=== PATIENT | female | born 1950 | race Caucasian/White ===

== ENCOUNTER 2023-07-30 17:19 | Observation (INO) | payer MEDICARE, OTHER ==
[~2023-07-30] VITALS: Ht 162.6 cm; Wt 55.8 kg
[2023-07-30 17:24] VITALS: BP 155/70; PULSE 82; RESP 18; TEMP 97.5; O2SAT 98
[2023-07-30 17:53] LABS: BASOPHILS % (AUTO) 0.3 % (0.0-2.0); EOSINOPHILS # (AUTO) 0.1 K/uL (0-0.4); EOSINOPHILS % (AUTO) 0.4 % (0.0-4.0); HEMATOCRIT 45.7 % (36-48); HEMOGLOBIN 15.2 g/dL (12.0-16.0); LYMPHOCYTES # (AUTO) 1.8 K/uL (2.5-16.5); LYMPHOCYTES % (AUTO) 14.4 % (20.5-51.1); MEAN CORPUSCULAR HEMOGLOBIN 28 pg (27-31); MEAN CORPUSCULAR HGB CONC 33 g/dL (33-37); MEAN CORPUSCULAR VOLUME 83.6 fL (80-94); MONOCYTES # (AUTO) 0.9 K/uL (0.8-1.0); MONOCYTES % (AUTO) 6.8 % (1.7-9.3); NEUTROPHILS # (AUTO) 9.7 K/uL (1.8-7.7); NEUTROPHILS % (AUTO) 78.1 % (42.2-75.2); PLATELET COUNT (AUTO) 179 K/uL (140-450); RED BLOOD CELL COUNT(AUTO) 5.47 MIL/uL (4.20-5.40); RED CELL DISTRIBUTION WIDTH 15.1 % (11.6-13.7); WHITE BLOOD COUNT (AUTO) 12.5 K/uL (4.8-10.8)
[2023-07-30 18:04] LABS: ANION GAP 17.2 (8-16); CALCIUM 9.8 mg/dL (8.5-10.1); CARBON DIOXIDE 25.4 mmol/L (21-32); CHLORIDE 97 mmol/L (98-107); CREATININE 1.1 mg/dL (0.6-1.3); GLUCOSE 76 mg/dL (74-106); SODIUM SERUM 137 mmol/L (136-145); UREA NITROGEN, BLOOD 14 mg/dL (7-18)
[2023-07-30 18:05] LABS: POTASSIUM 2.6 mmol/L (3.5-5.1)
[2023-07-30 18:12] LABS: ALANINE AMINOTRANSFERASE 39 U/L (12-78); ALBUMIN 4.1 g/dL (3.4-5.0); ALKALINE PHOSPHATASE 78 U/L (50-136); ASPARTATE AMINOTRANSFERASE 24 U/L (15-37); BILIRUBIN,DIRECT 0.1 mg/dL (0.0-0.3); TOTAL BILIRUBIN 0.3 mg/dL (0.0-1.0); TOTAL PROTEIN, SERUM 7.9 g/dL (6.4-8.2)
[2023-07-30 18:50] LABS: BILIRUBIN,URINE NEGATIVE (NEGATIVE); BLOOD, URINE NEGATIVE (NEGATIVE); COLOR,URINE YELLOW (YELLOW); LEUKOCYTE ESTERASE ,URINE NEGATIVE (NEGATIVE); NITRITE, URINE NEGATIVE (NEGATIVE); PROTEIN,URINE 2+ (NEGATIVE); UGLUCOSE 3+ (NEGATIVE); UROBILINOGEN,URINE 0.2 EU/dL (0.2 - 1)
[2023-07-30 18:52] LABS: APPEARANCE,URINE SLIGHTLY HAZY (CLEAR)
[2023-07-30 18:54] LABS: BACTERIA,URINE 1+ /HPF (None Seen); MUCUS,URINE None Seen /LPF (None Seen); RBC,URINE 0-5 /HPF (0-5); SQUAMOUS EPITHELIAL CELL,UR 0-3 (FEW) /LPF (0-3 (FEW)); WBC,URINE 0-5 /HPF (0-5)
[2023-07-30 19:05] LABS: MAGNESIUM 1.6 mg/dL (1.8-2.4); PHOSPHORUS 2.6 mg/dL (2.5-4.9)
[2023-07-30] MEDS: POTASSIUM CHLORIDE 10 MEQ TABER PO ONE (19:08)
[2023-07-30] MEDS: KCL 20 MEQ IN 100 mL PREMIX 200 ML IV ONE (19:27)
[2023-07-30 19:58] VITALS: O2SAT 99
[2023-07-30] MEDS ORDERED: ACETAMINOPHEN 325 MG TAB PO PRN (20:30)
[2023-07-30] MEDS ORDERED: ONDANSETRON 4 MG/2 ML VIAL IVP PRN (20:30)
[2023-07-30] MEDS ORDERED: MORPHINE SULFATE 2 MG/ML SYR IVP PRN (20:30)
[2023-07-30] MEDS ORDERED: HYDR12.51 PO (20:52)
[2023-07-30] MEDS ORDERED: LISI40TA12 PO (20:52)
[2023-07-30] MEDS ORDERED: GLIP10TE PO (20:52)
[2023-07-30] MEDS ORDERED: AMLO10TA PO (20:52)
[2023-07-30] MEDS ORDERED: METF-346 PO (20:52)
[2023-07-30] MEDS: MAG SULF 2000 MG/WATER PREMIX 50 ML IV ONE (21:10)
[2023-07-30] MEDS: DEXT 5% /NACL 0.9% 1,000 ML IV SCH (21:11)
[2023-07-30 21:38] VITALS: PULSE 95
[2023-07-30 22:00] VITALS: BP 114/60; PULSE 70; RESP 18; TEMP 98.2; O2SAT 96; O2SAT 98
[2023-07-31] VITALS (8 sets, daily range): BP systolic 118–157; BP diastolic 58–80; PULSE 56–107; RESP 17–18; TEMP 97.4–98.5; O2SAT 95–99
[2023-07-31 05:48] LABS: BASOPHILS % (AUTO) 0.5 % (0.0-2.0); EOSINOPHILS # (AUTO) 0.1 K/uL (0-0.4); EOSINOPHILS % (AUTO) 0.8 % (0.0-4.0); HEMATOCRIT 40.7 % (36-48); HEMOGLOBIN 13.7 g/dL (12.0-16.0); LYMPHOCYTES # (AUTO) 2.3 K/uL (2.5-16.5); LYMPHOCYTES % (AUTO) 32.6 % (20.5-51.1); MEAN CORPUSCULAR HEMOGLOBIN 28 pg (27-31); MEAN CORPUSCULAR HGB CONC 34 g/dL (33-37); MEAN CORPUSCULAR VOLUME 83.5 fL (80-94); MONOCYTES # (AUTO) 0.5 K/uL (0.8-1.0); MONOCYTES % (AUTO) 7.3 % (1.7-9.3); NEUTROPHILS # (AUTO) 4.1 K/uL (1.8-7.7); NEUTROPHILS % (AUTO) 58.8 % (42.2-75.2); PLATELET COUNT (AUTO) 141 K/uL (140-450); RED BLOOD CELL COUNT(AUTO) 4.88 MIL/uL (4.20-5.40); RED CELL DISTRIBUTION WIDTH 14.9 % (11.6-13.7); WHITE BLOOD COUNT (AUTO) 7.1 K/uL (4.8-10.8)
[2023-07-31 06:14] LABS: ANION GAP 12.4 (8-16); CALCIUM 8.7 mg/dL (8.5-10.1); CARBON DIOXIDE 26.6 mmol/L (21-32); CHLORIDE 100 mmol/L (98-107); CREATININE 0.8 mg/dL (0.6-1.3); GLUCOSE 375 mg/dL (74-106); SODIUM SERUM 135 mmol/L (136-145); UREA NITROGEN, BLOOD 11 mg/dL (7-18)
[2023-07-31] MEDS ORDERED: DEXTROSE 50% 50 ML SYR IVP PRN (06:55)
[2023-07-31] MEDS: BLOOD GLUCOSE MONITORING 1 DEV DEV FS SCH (06:58)
[2023-07-31] MEDS: NACL 0.9% 1,000 ML IV SCH (07:02)
[2023-07-31] MEDS: INSULIN LISPRO SLIDING SCALE 100 UNITS/ML VIAL SUBQ PRN (07:06)
[2023-08-01 04:00] VITALS: BP 140/71; PULSE 57; RESP 17; TEMP 98.5; O2SAT 99
[2023-08-01 08:00] VITALS: PULSE 69; RESP 18; O2SAT 96
[2023-08-01] MEDS: hydroCHLOROthiazide 25 MG TAB PO SCH (10:00)
[2023-08-01] MEDS: amLODIPine 5 MG TAB PO SCH (10:00)
[2023-08-01] MEDS: lisinopriL 20 MG TAB PO SCH (10:01)
[2023-08-01 13:49] VITALS: BP 140/65; PULSE 69; RESP 18; TEMP 97.4
== END 2023-08-01 15:51 | disposition home or self-care (01) ==
LOC: MED 17:19 → MTU 20:30
PROVIDERS: ADMIT Hospitalist; ATTEND Hospitalist
DX: G93.41 Metabolic encephalopathy (principal); E87.8 Other disorders of electrolyte and fluid balance, not elsewhere classified; E87.6 Hypokalemia; E83.42 Hypomagnesemia; E11.649 Type 2 diabetes mellitus with hypoglycemia without coma; I10 Essential (primary) hypertension; D72.829 Elevated white blood cell count, unspecified; Z79.899 Other long term (current) drug therapy
CPT/HCPCS: 36415; 70450; 71045; 80048; 80076; 81001; 82948; 83735; 84100; 84484; 85025; 93005; 96361; 96365; 96366; 96368; 96372; G0378; J1815; J3475; J3480; 99291